=== PATIENT | male | born 1940 | race Caucasian/White ===

== ENCOUNTER → 2017-08-03 | Outpatient (CLI) | payer MEDICARE, OTHER ==
[~2017-08-03] MED LIST: ASPIR 8181 MG PO; ASPIRIN325 PO; CRESTOR40 MG PO; LOTENSIN40 MG PO; PROTONIX40 M2 PO; TOPROL XL25 MG PO; VITAMIN D-32000 UNIT PO
== END ==
LOC: M.NUC 12:15
DX: R10.11 Right upper quadrant pain (principal)

== ENCOUNTER → 2018-02-16 | Outpatient (CLI) | payer MEDICARE, OTHER ==
[2018-02-16 11:10] LABS: ABSOLUTE BASOPHILS 0.1 thou/uL (0.0-0.2); ABSOLUTE EOSINOPHILS 0.3 thou/uL (0.0-0.7); ABSOLUTE LYMPHOCYTES 1.8 thou/uL (0.8-5.3); ABSOLUTE MONOCYTES 0.7 thou/uL (0.0-1.2); ABSOLUTE NEUTROPHILS 4.9 thou/uL (1.6-8.1); EOSINOPHILS 3.8 %; HEMATOCRIT 46.6 % (42.0-52.0); HEMOGLOBIN 15.6 gm/dL (14.0-18.0); MCH 30.1 pg (26.0-34.0); MCHC 33.4 g/dL (28.0-37.0); MONOCYTES 8.6 %; MPV 8.4 fl. (7.2-11.1); NUCLEATED RBCS 0 /100WBC; PLATELET COUNT* 194 thou/uL (150-400); POLYS 63.6 %; RBC 5.18 mil/uL (4.50-6.00); RDW-CV 15.6 % (10.5-14.5); WBC 7.7 thou/uL (4.0-11.0)
[2018-02-16 12:10] LABS: ALBUMIN 3.9 g/dL (3.4-5.0); ALKALINE PHOSPHATASE 78 U/L (46-116); ANION GAP 8 mmol/L (7-16); BUN 27 mg/dL (7-18); CALCIUM 9.5 mg/dL (8.5-10.1); CHLORIDE 106 mmol/L (98-107); CHOLESTEROL 189 mg/dL (<200); CO2 28 mmol/L (21-32); CREATININE 1.4 mg/dL (0.6-1.3); GLUCOSE 101 mg/dL (70-99); HDL CHOLESTEROL 65 mg/dL (>40); LDL CHOLESTEROL 106 mg/dL (<100); POTASSIUM 4.8 mmol/L (3.5-5.1); SGOT 30 U/L (15-37); SGPT 47 U/L (30-65); SODIUM 142 mmol/L (136-145); TC:HDL 2.9 Ratio (Not establshd); TOTAL BILIRUBIN 1.4 mg/dL (<0.1-1.0); TOTAL PROTEIN 7.2 g/dL (6.4-8.2); TRIGLYCERIDE 91 mg/dL (<150); VLDL 18 mg/dL (<40)
[2018-02-16 12:13] LABS: SERUM ASSESSMENT Clear
== END ==
LOC: M.LAB 10:51
DX: L30.9 Dermatitis, unspecified (principal); E78.00 Pure hypercholesterolemia, unspecified; I10 Essential (primary) hypertension; Z79.899 Other long term (current) drug therapy

== ENCOUNTER → 2018-09-05 | Outpatient (CLI) | payer MEDICARE, OTHER ==
[2018-09-05 10:32] LABS: ALBUMIN 3.7 g/dL (3.4-5.0); DIRECT BILIRUBIN 0.1 mg/dL (<0.1-0.3); TOTAL BILIRUBIN 1.3 mg/dL (<0.1-1.0); TOTAL PROTEIN 6.9 g/dL (6.4-8.2)
== END ==
LOC: M.LAB 09:42
PROVIDERS: Dermatology
DX: R74.0 Nonspecific elevation of levels of transaminase and lactic acid dehydrogenase [LDH] (principal); Z79.899 Other long term (current) drug therapy

== ENCOUNTER 2020-07-30 11:17 | Emergency (ER) | payer OTHER ==
[~2020-07-30] VITALS: Ht 180.3 cm; Wt 106.6 kg
[2020-07-30] MEDS ORDERED: METHOTREXATE 22.5 M1 PO (11:27)
[2020-07-30 11:41] LABS: ABSOLUTE EOSINOPHILS 0.3 thou/uL (0.0-0.7); ABSOLUTE LYMPHOCYTES 1.5 thou/uL (0.8-5.3); ABSOLUTE MONOCYTES 0.5 thou/uL (0.0-1.2); BASOPHILS 0.2 %; EOSINOPHILS 4.9 %; HEMATOCRIT 43.3 % (42.0-52.0); HEMOGLOBIN 14.7 gm/dL (14.0-18.0); LYMPHOCYTES 28.8 %; MCH 31.4 pg (26.0-34.0); MCHC 33.8 g/dL (28.0-37.0); MCV 92.8 fL (80.0-100.0); MONOCYTES 9.6 %; MPV 8.9 fl. (7.2-11.1); NUCLEATED RBCS 0 /100WBC; PLATELET COUNT* 159 thou/uL (150-400); POLYS 56.5 %; RBC 4.67 mil/uL (4.50-6.00); RDW-CV 15.1 % (10.5-14.5); WBC 5.4 thou/uL (4.0-11.0)
[2020-07-30 11:52] LABS: APTT 24.1 Seconds (25.0-31.3); CALCIUM 9.5 mg/dL (8.5-10.1); CREATININE 1.3 mg/dL (0.6-1.3); POTASSIUM 4.3 mmol/L (3.5-5.1)
[2020-07-30 12:08] LABS: ALBUMIN 3.7 g/dL (3.4-5.0); CK-MB MASS 1.7 ng/mL (<0.5-3.6); MAGNESIUM 2.3 mg/dL (1.8-2.4); TOTAL BILIRUBIN 1.5 mg/dL (<0.1-1.0); TOTAL PROTEIN 7.1 g/dL (6.4-8.2)
[2020-07-30 12:49] VITALS: BP 145/65
--- NOTE | 2020-07-30 17:50 | EKG ---
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1940 Requested By: Paddy Porter Order Number: [id number] MD: Thony Matos Measurements Intervals [place] Rate: 167 P: -59 [place]: 128 QRS: -69 QRSD: 128 T: 73 QT: 328 QTc: 547 Interpretive Statements Supraventricular tachycardia RBBB and LAFB Compared to ECG 03/11/2017 14:16:47 Sinus rhythm no longer present First degree AV block no longer present ST (T wave) deviation no longer present Myocardial infarct finding no longer present Electronically Signed On 07-30-2020 17:50:45 MOLD STAMPER by Thony Matos [email or web address] <ELECTRONICALLY SIGNED> By: Thony Matos MD, FACC 07/30/20 1750 1122 1122 Thony Matos MD, FACC /EPI
--- NOTE | 2020-07-30 17:54 | EKG ---
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1940 Requested By: Paddy Porter Order Number: [id number] MD: Thony Matos Measurements Intervals [place] Rate: 52 P: 11 [place]: 234 QRS: -30 QRSD: 146 T: 4 QT: 487 QTc: 453 Interpretive Statements Sinus rhythm Prolonged [place] interval Right bundle branch block Compared to ECG 03/11/2017 14:16:47 Left anterior fascicular block no longer present ST (T wave) deviation no longer present Electronically Signed On 07-30-2020 17:54:04 DIRECTOR BIOLOGY by Thony Matos [email or web address] <ELECTRONICALLY SIGNED> By: Thony Matos MD, FACC 07/30/20 1754 1211 1211 Thony Matos MD, [facility] /EPI
== END 2020-07-30 12:50 | disposition home or self-care (01) ==
LOC: M.ERS 11:17
PROVIDERS: Family Medicine
DX: I48.20 Chronic atrial fibrillation, unspecified (principal); E78.00 Pure hypercholesterolemia, unspecified; I10 Essential (primary) hypertension; E78.5 Hyperlipidemia, unspecified; I25.10 Atherosclerotic heart disease of native coronary artery without angina pectoris; Z91.030 Bee allergy status

== ENCOUNTER → 2020-09-12 | Outpatient (CLI) | payer OTHER ==
[~2020-09-12] MED LIST changes: +METHOTREXATE 22.5 M1 PO
--- NOTE | 2020-09-12 15:12 | CARDNUC ---
[place] [address] CARDIAC NUCLEAR IMAGING REPORT Name: FIDELINA AMATO Room: [facility]#: [id number] Admission: 09/12/20 Attend Phys: Thony Matos, Discharge: Date of : 38 Date of Service: 09/12/20 1512 Report #: [id number] THIS REPORT FOR: cc: Lyndsay Sagastume Maggie M. DO Park,Simón Gordillo MD ~ APPROVED REPORT Imaging Protocol: Rest Tc-99m/Stress Tc-99m 1 day Study performed: 09/12/2020 09:02:47 Indication: Chest pain Patient Location: Out-Patient Stress Tech: Tessie De Luna Stress Nurse: Rosie Ignacio RN NM Tech:KINGSLEY Esquivel Ht: 5 ft 11 in Wt: 234 lbs BSA: 2.25 m2 BMI: 32.63 Medical History Medical History: Arrhythmia, CKD, Diabetic Noninsulin, HTN, Hyperlipidemia, , RBBB, Smoking, Weakness Medications: metoprolol, ntg, asa-81, benazepril, rosuvastatin Allergies: No known drug allergies Cardiac Risk Factors: Age, Diabetes (non-insulin), HTN, Hyperlipidemia, Tobacco History (Former) Previous Cardiac Procedures: PCI Exercise History: Sedentary Meds Held (24 hrs): metoprolol Resting Data Rest SPECT myocardial perfusion imaging was performed in supine position 30 minutes following the intravenous injection of 10.6 mCi of Tc-99m Sestamibi. Time of rest injection: 744 Date: 09/12/2020 The images were gated to evaluate regional wall motion and calculate left ventricular ejection fraction. Administration Route: IV Administration Site: Right AC Pharmacologic Stress Pharmacologic stress test was performed by injecting Regadenoson 0.4 [place] [address] CARDIAC NUCLEAR IMAGING REPORT Name: FIDELINA AMATO Room: [facility]#: [id number] Admission: 09/12/20 Attend Phys: Thony Matos, Discharge: Date of : 38 Date of Service: 09/12/20 1512 Report #: [id number] mg IV push over 10-15 seconds immediately followed by the intravenous injection of 34.0 mCi of Tc-99m Sestamibi. Time of stress injection: 919 Date: 09/12/2020 Administration Route: IV Administration Site: Right AC Gated Stress SPECT was performed 40 minutes after stress injection. The images were gated to evaluate regional wall motion and calculate left ventricular ejection fraction. Prone imaging was performed. Stress Test Details Stress Test: Pharmacologic stress testing performed using 0.4 mg of regadenoson per 5 mL given IV over 10 seconds. Reason for pharmacologic stress test: arthritis. HR Max Heart Rate (APMHR): 140 bpm Resting HR: 59 bpm Target HR (85% APMHR): 119 bpm Max HR Achieved: 81 bpm % of APMHR: 57 Recovery HR: 71 bpm BP Resting BP: 146/69 mmHg Max BP: 168/65 mmHg Recovery BP: 157/64 mmHg ECG Resting ECG: Sinus Rhythm, RBBB Stress ECG: Sinus Rhythm, RBBB ST Change: Non-ischemic Clinical Reason for Termination: Completed protocol Study Quality Study: Good Artifact: Mild Diaphragmatic artifact Study Data Post stress, the left ventricular ejection was 73%.. SSS: 6 SRS: 0 SDS: 6 TID = 1.07[place] [address] CARDIAC NUCLEAR IMAGING REPORT Name: FIDELINA AMATO Room: [facility]#: [id number] Admission: 09/12/20 Attend Phys: Thony Matos, Discharge: Date of : 38 Date of Service: 09/12/20 1512 Report #: [id number] There is a small area of mildly reduced uptake in the basal segment of the inferior wall which is seen on the stress images and improves on the resting images. This area thickens and moves normally and is most consistent with attenuation artifact. Wall Motion Normal left ventricular wall motion. Nuclear Conclusion ECG Findings: negative for ischemia Clinical Findings: non-diagnostic Nuclear Findings: negative for ischemia Exercise Capacity: not assessed Left Ventricular Function: normal Risk Study: low This study is of low probability for inducible ischemia or prior infarct. Normal global and segmental LV systolic function. Artifact: Mild Diaphragmatic artifact <ELECTRONICALLY SIGNED> By: Simón Srinivasan MD 09/12/201511 11 11 Simón Srinivasan MD /INF
== END ==
LOC: M.NUC 08-30 09:11
PROVIDERS: ATTEND Internal Medicine Cardiovascular Disease
DX: I25.10 Atherosclerotic heart disease of native coronary artery without angina pectoris (principal)

== ENCOUNTER → 2020-12-11 | Outpatient (CLI) | payer OTHER ==
[2020-12-11 12:08] LABS: ALBUMIN 3.5 g/dL (3.4-5.0); DIRECT BILIRUBIN 0.2 mg/dL (<0.1-0.3); TOTAL BILIRUBIN 1.6 mg/dL (<0.1-1.0); TOTAL PROTEIN 7.1 g/dL (6.4-8.2)
== END ==
LOC: M.LAB 11:38
PROVIDERS: ATTEND Dermatology
DX: Z79.899 Other long term (current) drug therapy (principal)

== ENCOUNTER 2021-04-11 11:13 | Observation (INO) | payer OTHER ==
[~2021-04-11] VITALS: Ht 180.3 cm; Wt 105.7 kg
[2021-04-11 11:26] VITALS: BP 148/65
[2021-04-11 11:54] LABS: URINE BILIRUBIN NEGATIVE (Negative); URINE BLOOD 3+ (Negative); URINE CLARITY CLEAR; URINE COLOR YELLOW; URINE GLUCOSE-RANDOM NEGATIVE (Negative); URINE KETONES NEGATIVE (Negative); URINE LEUKOCYTES NEGATIVE (Negative); URINE NITRITE NEGATIVE (Negative); URINE PROTEIN 1+ (Negative); URINE SPECIFIC GRAVITY 1.025 (1.005-1.030); URINE UROBILINOGEN 0.2 E.U./dl (0.2-1.0)
[2021-04-11 12:05] LABS: ABSOLUTE LYMPHOCYTES 1.1 thou/uL (0.8-5.3); ABSOLUTE MONOCYTES 0.6 thou/uL (0.0-1.2); BASOPHILS 0.5 %; EOSINOPHILS 0.6 %; HEMATOCRIT 42.1 % (42.0-52.0); HEMOGLOBIN 14.1 gm/dL (14.0-18.0); LYMPHOCYTES 13.9 %; MCH 30.3 pg (26.0-34.0); MCHC 33.6 g/dL (28.0-37.0); MCV 90.4 fL (80.0-100.0); MONOCYTES 7.6 %; MPV 9.3 fl. (7.2-11.1); NUCLEATED RBCS 0 /100WBC; PLATELET COUNT* 134 thou/uL (150-400); POLYS 77.4 %; RBC 4.66 mil/uL (4.50-6.00); RDW-CV 14.5 % (10.5-14.5); WBC 7.8 thou/uL (4.0-11.0)
[2021-04-11 12:05] LABS: SQUAMOUS 0-3 Few /LPF (0-3)
[2021-04-11 12:06] LABS: BACTERIA >30 Many /HPF (None Seen); MUCUS 0-3 Light strn/LPF (None Seen); URINE RBC >20 Many /HPF (0-2); URINE WBC 6-15 Few /HPF (0-5)
[2021-04-11 12:07] LABS: AMORPHOUS PHOSPHATES Moderate /LPF (None Seen); CRYSTALS None Seen /LPF (None Seen)
[2021-04-11 12:16] LABS: CALCIUM 8.9 mg/dL (8.5-10.1); CREATININE 1.6 mg/dL (0.6-1.3); POTASSIUM 4.7 mmol/L (3.5-5.1)
[2021-04-11 12:19] LABS: CASTS None Seen /LPF (None Seen)
[2021-04-11 12:20] LABS: ALBUMIN 3.4 g/dL (3.4-5.0); TOTAL BILIRUBIN 1.2 mg/dL (<0.1-1.0); TOTAL PROTEIN 6.8 g/dL (6.4-8.2)
--- NOTE | 2021-04-11 12:23 | EKG ---
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1940 Requested By: Dani Rene Order Number: [id number] MD: Moreno Waddell Measurements Intervals [place] Rate: 56 P: -18 [place]: 255 QRS: -42 QRSD: 143 T: 13 QT: 601 QTc: 581 Interpretive Statements Sinus rhythm Prolonged [place] interval RBBB and LAFB Probable left ventricular hypertrophy Compared to ECG 07/30/2020 12:11:14 no change Electronically Signed On 04-11-2021 12:23:27 CLAY PROCESSING LABOURER by Moreno Waddell [email or web address] <ELECTRONICALLY SIGNED> By: Moreno Waddell MD, [facility] 04/11/21 1223 1130 1130 Moreno Waddell MD, [facility] /EPI
[2021-04-11 20:07] VITALS: BP 145/71
[2021-04-11 21:27] VITALS: BP 145/71
[2021-04-11 21:40] VITALS: BP 146/61
--- NOTE | 2021-04-11 22:50 | NUR ---
ASSUMED CARE UPON ADMISSION INTO ROOM 308 FROM ER PER STRETCHER. UP AD BLANCA WITH STEADY GAIT. VOIDS PER URINAL, AND URINE STRAINED. ADMISSION COMPLETED IN ER. ORIENTED TO ROOM. NO C/O PAIN. HOURLY ROUNDS CONTINUE. CALL LITE IN REACH.
[2021-04-12 05:43] LABS: HEMOGLOBIN 12.5 gm/dL (14.0-18.0); MCH 29.5 pg (26.0-34.0); MCV 89.5 fL (80.0-100.0); MPV 9.9 fl. (7.2-11.1); RBC 4.25 mil/uL (4.50-6.00); RDW-CV 14.6 % (10.5-14.5); WBC 5.7 thou/uL (4.0-11.0)
--- NOTE | 2021-04-12 05:46 | NUR ---
RESTED IN BED THROUGH THE NIGHT. TURNS SELF. IVF INFUSING PER ORDER. NPO AFTER MIDNIGHT. MEDICATED FOR PAIN ONCE WITH RELIEF. HOURLY ROUNDS CONTINUE. BED ALARM ON. CALL LITE IN REACH.
[2021-04-12 05:48] LABS: CALCIUM 8.4 mg/dL (8.5-10.1); CREATININE 1.3 mg/dL (0.6-1.3); POTASSIUM 3.9 mmol/L (3.5-5.1)
[2021-04-12 09:16] VITALS: BP 121/52
[2021-04-12 11:49] LABS: CALCIUM 8.4 mg/dL (8.5-10.1); CREATININE 1.4 mg/dL (0.6-1.3); POTASSIUM 4.2 mmol/L (3.5-5.1)
[2021-04-12 11:52] LABS: MAGNESIUM 2.1 mg/dL (1.8-2.4); PHOSPHORUS* 3.2 mg/dL (2.5-4.9)
--- NOTE | 2021-04-12 15:28 | NUR ---
Urology here to see patient, and patient can be discharged. Sent message to Dr. Barboza. DC pts iv fluids. Meal given.
[2021-04-12] MEDS ORDERED: METRONIDAZOLE500 M4 PO (16:16)
[2021-04-12] MEDS ORDERED: CIPRO500 M1 PO (16:16)
[2021-04-12] MEDS ORDERED: FLOMAX0.4 MG PO (16:18)
[2021-04-12 16:57] VITALS: BP 121/52
--- NOTE | 2021-04-12 17:26 | NUR ---
Reviewed discharge instructions, and patient is discharged at 1720. To lobby via wheelchair.
== END 2021-04-12 17:15 | disposition home or self-care (01) ==
LOC: M.ERS 11:13 → M.TBA-ER 14:26 → M.3W 14:26
PROVIDERS: Physician Assistant; ADMIT Internal Medicine; ATTEND Internal Medicine
DX: N13.2 Hydronephrosis with renal and ureteral calculous obstruction (principal); Z20.822 Contact with and (suspected) exposure to COVID-19; N17.9 Acute kidney failure, unspecified; N39.0 Urinary tract infection, site not specified; I10 Essential (primary) hypertension; E78.5 Hyperlipidemia, unspecified; I48.20 Chronic atrial fibrillation, unspecified; Z87.891 Personal history of nicotine dependence; Z85.46 Personal history of malignant neoplasm of prostate; Z79.899 Other long term (current) drug therapy